=== PATIENT | female | born 1990 | race Asian ===

== ENCOUNTER 2023-10-21 17:49 | Inpatient (IN) ==
[2023-10-21] MEDS ORDERED: Lidocaine 1% VIAL 10 MG/ML 30 ML VIAL INJ PRN (18:45)
[2023-10-21] MEDS: Dinoprostone 10 MG VAG.SUPP VAGINAL ONE (20:14)
[2023-10-21 20:25] LABS: Urine Benzodiazepine Screen None Detected (None Detect); Urine Cannabinoids Screen None Detected (None Detect); Urine Opiates Screen None Detected (None Detect)
[2023-10-21 21:31] LABS: ABS Lymphocytes 1.2 10^3/uL (1.0-4.8); ABS Monocytes 0.5 10^3/uL (0.0-0.9); ABS Neutrophils 4.2 10^3/uL (1.5-7.6); ABS Nucleated RBC 0.01 10^3/ul; Eosinophil % 0.8 %; Hematocrit 30.9 % (35-45); Hemoglobin 10.7 g/dL (11.5-14.3); Lymphocyte % 20.5 %; Mean Corpuscular Hemoglobin 34.6 pg (27-33); Mean Corpuscular Hgb Conc 34.8 g/dL (31-36); Mean Corpuscular Volume 99.4 fL (80-97); Mean Platelet Volume 8.5 fL (7.5-11.2); Nucleated Red Blood Cells % 0.1 %/100WBC (0.0-0.8); Platelet Count 185 10^3/uL (150-450); Red Cell Distribution Width 12.7 % (12-17); White Blood Count 5.9 10^3/uL (3.8-11.8)
[2023-10-22] MEDS: Prochlorperazine 5 mg/ml 2 ml VIAL (10 mg) IV PRN (02:44)
[2023-10-22] MEDS: Lactated Ringers 1000 ml BAG 1,000 ML IV ONE ×2 (05:26→20:31)
[2023-10-22] MEDS: Lactated Ringers 1000 ml BAG 1,000 ML IV SCH ×2 (06:37→09:07)
[2023-10-22] MEDS: OBEPIDURAL (200 ML) 200 ML EPIDURAL ONE (07:20)
[2023-10-22] MEDS: OBEPIDURAL (200 ML) 200 ML EPIDURAL SCH (08:06)
[2023-10-22] MEDS ORDERED: Phenylephrine 40 mcg/mL 10mL (400mcg) SYRINGE IV PUSH PRN ×2 (08:25)
[2023-10-22] MEDS ORDERED: Sodium Citrate/Citric Acid LIQ 15 ML UDC PO PRN (08:25)
[2023-10-22 09:44] LABS: Urine Appearance Clear; Urine Bilirubin Negative (Negative); Urine Blood Negative (Negative); Urine Color Yellow; Urine Glucose Negative (Negative); Urine Ketones 2+ (Negative); Urine Nitrite Negative (Negative); Urine Protein Trace (Negative); Urine Specific Gravity 1.021 (1.002-1.030); Urine Urobilinogen Negative (Negative); Urine pH 6.5 (5.0-8.0)
[2023-10-22] MEDS: Oxytocin in LR 20,000 MILLI.UNIT/1,000 ML BAG IV SCH (09:50)
[2023-10-22] MEDS ORDERED: Glycerin ADULT 2.4 gm SUPP PR PRN (09:59)
[2023-10-22] MEDS: Dibucaine 1% OINT 28.35 GM TUBE PR PRN (17:02)
[2023-10-22] MEDS: Witch Hazel PAD JAR TOPICAL PRN (17:02)
[2023-10-22] MEDS: Buffered Lidocaine 1% SYRIN 1 ml INTRADERM ONE (20:30)
[2023-10-22] MEDS: Oxytocin in LR 20,000 MILLI.UNIT/1,000 ML BAG IV ONE (20:31)
[2023-10-22] MEDS: Lidocaine 1.5% EPI 1:200,000 30 ML SDV ONE (20:31)
[2023-10-22] MEDS: Phenylephrine 40 mcg/mL 10mL (400mcg) SYRINGE ONE (20:31)
[2023-10-23 06:59] LABS: ABS Lymphocytes 1.3 10^3/uL (1.0-4.8); ABS Monocytes 0.5 10^3/uL (0.0-0.9); ABS Neutrophils 6.1 10^3/uL (1.5-7.6); Eosinophil % 0.5 %; Hemoglobin 8.8 g/dL (11.5-14.3); Lymphocyte % 16.3 %; Mean Corpuscular Hgb Conc 35.3 g/dL (31-36); Mean Corpuscular Volume 99.1 fL (80-97); Mean Platelet Volume 7.7 fL (7.5-11.2); Platelet Count 141 10^3/uL (150-450); Red Blood Count 2.53 10^6/uL (3.63-4.92); Red Cell Distribution Width 12.8 % (12-17)
[2023-10-23 07:48] VITALS: BP 107/61
== END 2023-10-23 16:10 | disposition home or self-care (01) | DRG 560 ==
LOC: MCHOBOUT 17:49 → MCHOB 18:13
PROVIDERS: ADMIT Advanced Practice Midwife; ATTEND Midwife